=== PATIENT | male | born 1945 | race Caucasian/White ===

== ENCOUNTER 2017-05-27 06:48 | Emergency (ER) | payer SELFPAY ==
[2017-05-27 07:24] VITALS: TEMP 98.7; BMI 28.3
--- NOTE | 2017-05-27 07:24 | PDOC ---
History of Present Illness - General Chief Complaint: Urinary Problem Stated Complaint: CANNOT URINATE Time Seen by Provider: 05/27/17 07:09 History Source: Patient, Family (niece) Exam Limitations: Language Barrier (speaks azeri) - History of Present Illness Initial Comments: 05/27/17 07:25 72yo male presents ambulatory to the ED for eval of urinary retention. Hx of CVA , HTN, and an enlarged prostate for which he underwent prostate sx 6 years ago in [place]. Pt arrives with his niece, who is at the bedside and assisting with translation. [place] in the [place] yesterday from [place]. Last time he was able to urinate was around 2p yesterday while on the plane. States he has only dribbled urine since. No dysuria. No f/c. No n/v/d. No hematuria. No cp/sob. No lightheaded or dizziness. c/o suprapubic abd pain. No other complaints. Past History - Travel Traveled outside of the country in the last 30 days: Yes If so, where?: from [place] - Past Medical History Allergies/Adverse Reactions: Allergies Allergy/AdvReac Type Severity Reaction Status Date / Time No Known Allergies Allergy Verified 05/27/17 07:03 Home Medications: Ambulatory Orders Tamsulosin HCl [Flomax] 0.4 mg PO DAILY #14 capsule 05/27/17 CVA: Yes HTN: Yes Comment:: 05/27/17 07:37 enlarged prostate - Surgical History Comments:: 05/27/17 07:37 prostate surgery - Psycho/Social/Smoking Cessation Hx Suicidal Ideation: No Smoking History: Never smoked Have you smoked in the past 12 months: No Information on smoking cessation initiated: No Hx Alcohol Use: No Drug/Substance Use Hx: No Review of Systems - Review of Systems Is the patient limited Turkish proficient: Yes Constitutional: No: Chills, Fever, Weakness HEENTM: No: Blurred Vision, Recent change in vision Respiratory: No: Cough, Shortness of Breath, SOB with Exertion Cardiac (ROS): No: Chest Pain, Lightheadedness, Palpitations ABD/GI: Yes: Blood Streaked Bowels (chronic blood in stool from plavix). No: Diarrhea, Nausea, Vomiting : Yes: Other (retention). No: Burning, Dysuria, Flank Pain, Hematuria, Urgency Musculoskeletal: No: Back Pain Integumentary: No: Bruising Neurological: No: Headache, Numbness All Other Systems: Reviewed and Negative *Physical Exam - Vital Signs Last Vital Signs Temp Pulse Resp BP Pulse Ox 98.7 F 87 20 133/91 99 05/27/17 07:03 05/27/17 07:03 05/27/17 07:03 05/27/17 07:03 05/27/17 07:03 - Physical Exam General Appearance: Yes: Nourished, Appropriately Dressed, Mild Distress HEENT: positive: EOMI Neck: positive: Supple Respiratory/Chest: positive: Lungs Clear, Normal Breath Sounds. negative: Respiratory Distress Cardiovascular: positive: Regular Rhythm, Regular Rate, S1, S2. negative: Edema Vascular Pulses: Dorsalis-Pedis (R): 2+, Doralis-Pedis (L): 2+ Gastrointestinal/Abdominal: positive: Normal Bowel Sounds, Tender (distended bladder, ttp suprapubic), Soft Male Genitalia: positive: normal genitalia, hernia (right inguinal easily reducible hernia). negative: testicular tenderness, testicular mass, epididymus tender, hematuria Rectal Exam: positive: heme negative stool, normal rectal tone, hemorrhoids (3 external hemorrhoids - no active bleeding, no thrombosed hemorrhoids). negative : heme positive stool Musculoskeletal: positive: Normal Inspection. negative: CVA Tenderness Extremity: positive: Normal Capillary Refill. 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 pain resolved. abd soft on re-eval. no ttp in abd. no hematuria. pending labs 05/27/17 08:37 pt feeling better. no complaints. Antonio in place. Rx for flomax sent to [facility]. discussed need for follow up with urology and the clinic. Family and pt verbalize understanding. Pt stable for d/c to home. Discussed all reasons to return to the ED. Pt will be in the [facility] until Jul 07. *DC/Admit/Observation/Transfer Diagnosis at time of Disposition: Urinary retention - Discharge Dispostion Disposition: HOME Condition at time of disposition: Stable Admit: No - Prescriptions Prescriptions: Tamsulosin HCl [Flomax] 0.4 mg PO DAILY #14 capsule - Referrals Referrals: Gabe Vickers MD [Staff Physician] - - Patient Instructions Printed Discharge Instructions: DI for Urinary Retention in Men Additional Instructions: Please take all meds as prescribed. Please follow up with urology for catheter eval and removal. Please continue to use the leg bag. Please return to the ED with any further concerns. [facility] follow up with the [facility].
[2017-05-27 07:43] LABS: BASOPHIL 0.3 % (0-2.0); EOSINOPHIL 0.1 % (0-4.5); MCH 29.5 pg (25.7-33.7); MCHC 33.2 g/dl (32.0-35.9); MEAN PLT VOLUME 7.5 fl (7.5-11.1); NEUTROPHILS 78.4 % (42.8-82.8); PLATELET COUNT 260 K/MM3 (134-434); RDW 13.2 % (11.9-15.9); WHITE BLOOD COUNT 8.3 K/mm3 (4.0-10.0)
[2017-05-27 07:45] LABS: URINE APPEARANCE CLEAR; URINE BILIRUBIN NEGATIVE (NEGATIVE); URINE BLOOD 1+ (NEGATIVE); URINE COLOR LTYELLOW; URINE GLUCOSE (UA) 1+ (NEGATIVE); URINE KETONE NEGATIVE (NEGATIVE); URINE LEUK ESTERASE NEGATIVE (NEGATIVE); URINE NITRITE NEGATIVE (NEGATIVE); URINE PROTEIN NEGATIVE (NEGATIVE); URINE UROBILINOGEN NEGATIVE mg/dL (0.2-1.0)
[2017-05-27 08:02] LABS: URINE MUCUS RARE; URINE RBC 5 /hpf (0-3)
[2017-05-27 08:17] LABS: ALBUMIN 3.4 g/dl (3.4-5.0); ALK PHOS 81 U/L (45-117); ANION GAP 9 (8-16); BILIRUBIN,TOTAL 0.6 mg/dL (0.2-1.0); CALCIUM 9.2 mg/dL (8.5-10.1); CO2 27 mmol/L (21-32); CREATININE 0.9 mg/dL (0.7-1.3); GLUCOSE,RANDOM 111 mg/dL (74-106); SGOT/AST 13 U/L (15-37); SGPT/ALT 20 U/L (12-78); TOT PROT 6.3 g/dl (6.4-8.2)
[2017-05-27] MEDS ORDERED: TAMSULOSIN HCL 0.4 MG CAP.ER.24H (FP) PO ONE (08:24)
[2017-05-27] MEDS ORDERED: TAMSULOSIN HCL 0.4 MG CAP.ER.24H (FP) ONE (08:31)
[2017-05-27 09:06] VITALS: BP 130/87; PULSE 85
== END 2017-05-27 09:06 | disposition home or self-care (01) ==
LOC: JER 06:48
PROC: 0T9B70Z Drainage of Bladder with Drainage Device, Via Natural or Artificial Opening (ICD-10-PCS; principal; 2017-05-27)
DX: R33.8 Other retention of urine (principal); N40.0 Benign prostatic hyperplasia without lower urinary tract symptoms; I10 Essential (primary) hypertension; Z86.73 Personal history of transient ischemic attack (TIA), and cerebral infarction without residual deficits
CPT/HCPCS: 36415; 80053; 81003; 81015; 85025; 87086; 99283-25

== ENCOUNTER 2017-06-02 03:26 | Emergency (ER) | payer SELFPAY ==
--- NOTE | 2017-06-02 04:13 | PDOC ---
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 Patient recently traveled to [facility] from [place] to visit family May 26. On May 27 patient was seen in this ED for urinary retention. Patient was given f/u referral to Urology , which he refuses to see an MD in this country. Patient daughter states he would like to see his doctors back home. He reports symptoms began this morning , with intermittent mild abdominal discomfort. Patient denies n/v/d, fever, difficulty breathing, CP, back pain or any other complaints at this time. Timing/Duration: reports: intermittent Quality: reports: mild Abdominal Pain Onset Location: reports: other (Lower abdominal pain) Pain Radiation: reports: no radiation Past History - Travel Traveled outside of the country in the last 30 days: No Close contact w/someone who was outside of country & ill: No - Past Medical History Allergies/Adverse Reactions: Allergies Allergy/AdvReac Type Severity Reaction Status Date / Time No Known Allergies Allergy Verified 05/27/17 07:03 Home Medications: Ambulatory Orders Tamsulosin HCl [Flomax] 0.4 mg PO DAILY #14 capsule 05/27/17 Cephalexin [Keflex] 500 mg PO BID #20 capsule 06/02/17 CVA: Yes Disorders: Yes (BPH) HTN: Yes - Psycho/Social/Smoking Cessation Hx Anxiety: No Suicidal Ideation: No Smoking History: Never smoked Have you smoked in the past 12 months: No Hx Alcohol Use: No Drug/Substance Use Hx: No Substance Use Type: None Abd/GI Specific PMHX - Complaint Specific PMHX Colitis: No Diverticulitis: No Gall Bladder Disease: No GERD: No Hepatitis: No Irritable Bowel Synd (IBS): No Pancreatitis: No GI Ulcer Disease: No Review of Systems - Review of Systems Able to Perform ROS?: Yes Is the patient limited Estonian proficient: No Constitutional: No: Chills, Fever Respiratory: No: Cough, Orthopnea, Shortness of Breath, Stridor, Wheezing Cardiac (ROS): No: Chest Pain, Chest Tightness ABD/GI: Yes: Abdominal cramping. No: Abdominal Distended, Abd. Pain w/ defecation, Blood Streaked Bowels, Constipated, Diarrhea, Difficulty Swallowing , Nausea, Poor Appetite, Poor Fluid Intake, Rectal Bleeding, Vomiting, Tarry Stools : Yes: Hematuria, Other (Antonio Cath due to retention). No: Burning, Dysuria, Discharge, Frequency, Flank Pain, Pain, Urgency Musculoskeletal: No: Back Pain Integumentary: No: Bruising, Erythema, Pruritus, Rash, Sweating All Other Systems: Reviewed and Negative *Physical Exam - Physical Exam General Appearance: Yes: Nourished, Appropriately Dressed. No: Apparent Distress, Mild Distress, Moderate Distress, Severe Distress Respiratory/Chest: positive: Lungs Clear, Normal Breath Sounds. negative: Chest Tender, Respiratory Distress, Accessory Muscle Use, Labored Respiration, Rapid RR, Paradoxal Breathing, Crackles, Rhonchi, Stridor, Wheezing Cardiovascular: positive: Regular Rhythm, Regular Rate. negative: Bradycardia, Tachycardia Gastrointestinal/Abdominal: positive: Normal Bowel Sounds, Flat, Soft. negative : Distended, Guarding, Rebound, Tenderness Male Genitalia: positive: normal genitalia, inguinal hernia, hematuria. negative: testicular tenderness, testicular mass Musculoskeletal: positive: Normal Inspection. negative: CVA Tenderness Extremity: positive: Normal Capillary Refill, Normal Inspection, Normal Range of Motion. 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 No nela hematuria noted. UA + UTI. Will treat with po Abx. *DC/Admit/Observation/Transfer Diagnosis at time of Disposition: Urinary tract infection Qualifiers: Urinary tract infection type: acute cystitis Hematuria presence: without hematuria Qualified Code(s): N30.00 - Acute cystitis without hematuria - Discharge Dispostion Disposition: HOME Condition at time of disposition: Stable Admit: No - Prescriptions Prescriptions: Cephalexin [Keflex] 500 mg PO BID #20 capsule - Referrals Referrals: Bala Barron MD [Staff Physician] - - Patient Instructions Printed Discharge Instructions: DI for Hematuria, DI for Urinary Tract Infection (UTI) Additional Instructions: Follow up with Dr. Barron (Urology). Call to schedule appointment regarding urinary retention. Take medications as prescribed. Increase fluid intake (water) . Return if any concerns for further evaluation. Print Language: FRENCH
[2017-06-02 04:19] LABS: BASOPHIL 1.1 % (0-2.0); EOSINOPHIL 1.2 % (0-4.5); MCH 30.2 pg (25.7-33.7); MCHC 33.8 g/dl (32.0-35.9); MEAN CELL VOLUME 89.4 fl (80-96); MEAN PLT VOLUME 7.7 fl (7.5-11.1); NEUTROPHILS 68.9 % (42.8-82.8); PLATELET COUNT 243 K/MM3 (134-434); RDW 13.3 % (11.9-15.9); WHITE BLOOD COUNT 6.4 K/mm3 (4.0-10.0)
[2017-06-02 04:23] VITALS: BP 121/80; PULSE 68; TEMP 98.1; BMI 19.5
[2017-06-02 04:25] LABS: URINE APPEARANCE SLCLOUDY; URINE BILIRUBIN NEGATIVE (NEGATIVE); URINE BLOOD 3+ (NEGATIVE); URINE COLOR STRAW; URINE GLUCOSE (UA) NEGATIVE (NEGATIVE); URINE KETONE NEGATIVE (NEGATIVE); URINE NITRITE POSITIVE (NEGATIVE); URINE UROBILINOGEN NEGATIVE mg/dL (0.2-1.0)
[2017-06-02 04:28] LABS: URINE LEUK ESTERASE 3+ (NEGATIVE); URINE PROTEIN 1+ (NEGATIVE)
[2017-06-02 04:29] LABS: URINE BACTERIA RARE /hpf (NONE SEEN); URINE RBC 41 /hpf (0-3); URINE WBC 61 /hpf (3-5)
[2017-06-02 04:41] LABS: ALBUMIN 3.2 g/dl (3.4-5.0); ANION GAP 9 (8-16); BILIRUBIN,TOTAL 0.2 mg/dL (0.2-1.0); CO2 27 mmol/L (21-32); CREATININE 0.9 mg/dL (0.7-1.3); GLUCOSE,RANDOM 103 mg/dL (74-106); SGOT/AST 11 U/L (15-37); SGPT/ALT 19 U/L (12-78); TOT PROT 6.2 g/dl (6.4-8.2)
[2017-06-02 04:42] LABS: ALK PHOS 76 U/L (45-117)
[2017-06-02 04:44] LABS: INR 1.03 (0.82-1.09); PROTHROMBIN TIME (PATIENT) 11.3 SEC (9.98-11.88)
[2017-06-02] MEDS ORDERED: CEPHALEXIN MONOHYDRATE 500 MG CAPSULE (UD) PO ONE (05:00)
[2017-06-02] MEDS ORDERED: CEPHALEXIN MONOHYDRATE 250 MG CAPSULE (FP) ONE (05:03)
== END 2017-06-02 05:10 | disposition home or self-care (01) ==
LOC: JER 03:26
DX: N30.01 Acute cystitis with hematuria (principal); N40.0 Benign prostatic hyperplasia without lower urinary tract symptoms; I10 Essential (primary) hypertension
CPT/HCPCS: 36415; 80053; 81003; 81015; 85025; 85610; 85730; 87086; 87186; 99281-25

== ENCOUNTER 2017-06-15 20:17 | Inpatient (IN) | payer OTHER ==
--- NOTE | 2017-06-15 22:29 | PDOC ---
History of Present Illness - General History Source: Patient, Family Exam Limitations: No Limitations - History of Present Illness Initial Comments: 06/15/17 23:23 The patient is a 72 year old male, accompanied by his niece, with a significant past medical history of CVA, hypertension, and an enlarged prostate for which he underwent prostate surgery six years ago in [place], who presents to the emergency department with hematuria and bilateral lower quadrant abdominal pain s/p catheter insertion. The patients niece is present and assisting with translation. The patient recently traveled to the [place] from [place] on [place] 26 and visited the ER on May 27 for urinary retention s/p flight from [place]. The patient received a catheter and reports experiencing bilateral lower abdominal pain, hematuria and subjective fever. The patient's niece reports the patient is currently taking Levofloxacin antibiotics with the last dose administered at approx. five pm earlier today. Allergies: NKA Recent Travel from [place]. <Jama Ruiz - Last Filed: 06/15/17 23:23> <Shahnaz Garcia - Last Filed: 06/16/17 03:11> - General Chief Complaint: Urinary Problem Stated Complaint: URINARY CATHATER PROBLEM Time Seen by Provider: 06/15/17 22:29 Past History <Jama Ruiz - Last Filed: 06/15/17 23:23> - Past Medical History CVA: Yes Disorders: Yes (BPH) HTN: Yes - Suicide/Smoking/Psychosocial Hx Smoking History: Never smoked Have you smoked in the past 12 months: No Hx Alcohol Use: No Drug/Substance Use Hx: No Substance Use Type: None <Shahnaz Garcia - Last Filed: 06/16/17 03:11> - Past Medical History Allergies/Adverse Reactions: Allergies Allergy/AdvReac Type Severity Reaction Status Date / Time No Known Allergies Allergy Verified 06/15/17 20:37 Home Medications: Ambulatory Orders Tamsulosin HCl [Flomax] 0.4 mg PO DAILY #14 capsule 05/27/17 Cephalexin [Keflex] 500 mg PO BID #20 capsule 06/02/17 Review of Systems - Review of Systems Comments:: 06/15/17 23:31 GENERAL/CONSTITUTIONAL: +Subjective fever. No chills. HEAD, EYES, EARS, NOSE AND THROAT: No change in vision. No ear pain or discharge. No sore throat. CARDIOVASCULAR: No chest pain or shortness of breath. RESPIRATORY: No cough, wheezing, or hemoptysis. GASTROINTESTINAL: +Right lower quadrant abdominal pain. +Left lower quadrant abdominal pain. No nausea, vomiting, diarrhea or constipation. GENITOURINARY: +Hematuria. MUSCULOSKELETAL: No joint or muscle swelling or pain. No neck or back pain. SKIN: No rash NEUROLOGIC: No headache, vertigo, loss of consciousness, or change in strength/ sensation. ENDOCRINE: No increased thirst. No abnormal weight change. HEMATOLOGIC/LYMPHATIC: No anemia, easy bleeding, or history of blood clots. ALLERGIC/IMMUNOLOGIC: No hives or skin allergy. Is the patient limited Hebrew proficient: Yes <Jama Ruiz - Last Filed: 06/15/17 23:23> *Physical Exam - Vital Signs Last Vital Signs Temp Pulse Resp BP Pulse Ox 99.1 F 80 18 124/71 99 06/15/17 20:35 06/15/17 20:35 06/15/17 20:35 06/15/17 20:35 06/15/17 20:35 - Physical Exam Comments: 06/15/17 23:33 GENERAL: Awake, alert, and fully oriented, in no acute distress HEAD: No signs of trauma EYES: PERRLA, EOMI, sclera anicteric, conjunctiva clear ENT: Auricles normal inspection, hearing grossly normal, nares patent, oropharynx clear without exudates. Moist mucosa NECK: Normal ROM, supple, no lymphadenopathy, JVD, or masses LUNGS: Breath sounds equal, clear to auscultation bilaterally. No wheezes, and no crackles HEART: Regular rate and rhythm, normal S1 and S2, no murmurs, rubs or gallops ABDOMEN: +Right lower quadrant tenderness. +Left lower quadrant tenderness. Soft , normoactive bowel sounds. No guarding, no rebound. No masses EXTREMITIES: Normal range of motion, no edema. No clubbing or cyanosis. No cords, erythema, or tenderness NEUROLOGICAL: Cranial nerves II through XII grossly intact. Normal speech, normal gait SKIN: Warm, Dry, normal turgor, no rashes or lesions noted. <Jama Ruiz - Last Filed: 06/15/17 23:23> - Vital Signs Last Vital Signs Temp Pulse Resp BP Pulse Ox 99.1 F 80 18 124/71 99 06/15/17 20:35 06/15/17 20:35 06/15/17 20:35 06/15/17 20:35 06/15/17 20:35 <Shahnaz Garcia - Last Filed: 06/16/17 03:11> ED Treatment Course - LABORATORY CBC & Chemistry Diagram: 06/15/17 23:20 06/15/17 23:20 <Shahnaz Garcia - Last Filed: 06/16/17 03:11> Medical Decision Making - Medical Decision Making 06/15/17 23:54 Pt comes with lower abd/ cystitis pain that results in pain with ambulation. This is his 3rd visit to the ER. Last time he was sent home with keflex, but pt 's UA is more infected than it was 3 weeks ago. Pt feels febrile. He has a leaking urinary catheter. Nerissamassimo states that pt came from [place] to [facility] to visit relatives, here he has been suffering with UTI/prostatitis/BPH and cystitis/worsening prostatitis and indwelling antonio catheter now Pt has pain in his antonio cath and slight bleeding. He remains with a nitrite positive urine and though his urologist treated him with levaquin today, (pt had only first dose today after 5PM) he will require sono of the pelvis to r/o displacement of antonio catheter or cystitis. 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 06/16/17 01:28 Patient Name: MARYAN MOSQUEDA THIS IS A PRELIMINARY REPORT FROM [facility] IMAGES: 31 EXAM DATE AND TIME: 2017-06-16 00:07:05 EXAM: ULTRASOUND BLADDER Thickened bladder wall, possibly due to cystitis or hypertrophy. Small right posterior bladder diverticulum. Bladder volume 295 cc. Antonio catheter within bladder. Enlarged prostate, 93 cc volume. THIS DOCUMENT HAS BEEN ELECTRONICALLY SIGNED 06/16/17 03:07 Pt will be admitted to observation to the hospitalist; Pt's urologist Wilfredo Machuca should be consulted. <Shahnaz Garcia - Last Filed: 06/16/17 03:11> *DC/Admit/Observation/Transfer - Attestations Scribe Attestion: 06/15/17 23:34 Documentation prepared by Jama Ruiz, acting as medical cost consultant for Shahnaz Garcia MD. <Jama Ruiz - Last Filed: 06/15/17 23:23> - Discharge Dispostion Admit: Yes <Shahnaz Garcia - Last Filed: 06/16/17 03:11> Diagnosis at time of Disposition: Cystitis, Prostatitis - Discharge Dispostion Condition at time of disposition: Guarded - Patient Instructions
[2017-06-15] MEDS ORDERED: SODIUM CHLORIDE 0.9% 500 ML INFUS.BAG IV ONE (22:44)
[2017-06-15] MEDS ORDERED: KETOROLAC TROMETHAMINE 30 MG/1 ML VIAL IVPUSH ONE (22:44)
[2017-06-15] MEDS ORDERED: KETOROLAC TROMETHAMINE 30 MG/1 ML VIAL ONE (23:02)
[2017-06-15 23:39] LABS: URINE APPEARANCE CLEAR; URINE BILIRUBIN NEGATIVE (NEGATIVE); URINE BLOOD 3+ (NEGATIVE); URINE COLOR LT. YELLOW; URINE GLUCOSE (UA) 1+ (NEGATIVE); URINE KETONE NEGATIVE (NEGATIVE); URINE UROBILINOGEN 0.2 mg/dL (0.2-1.0)
[2017-06-15 23:42] LABS: URINE LEUK ESTERASE 2+ (NEGATIVE); URINE NITRITE POSITIVE (NEGATIVE); URINE PROTEIN 2+ (NEGATIVE)
[2017-06-15 23:50] LABS: BASOPHIL 0.3 % (0-2.0); CALCIUM OXALATE CRYSTALS RARE /hpf (NONE SEEN); EOSINOPHIL 0.5 % (0-4.5); MCH 30.2 pg (25.7-33.7); MCHC 34.1 g/dl (32.0-35.9); MEAN CELL VOLUME 88.4 fl (80-96); MEAN PLT VOLUME 7.9 fl (7.5-11.1); NEUTROPHILS 78.6 % (42.8-82.8); PLATELET COUNT 246 K/MM3 (134-434); RDW 13.1 % (11.9-15.9); URINE BACTERIA RARE /hpf (NONE SEEN); URINE RBC 22 /hpf (0-3); URINE WBC 192 /hpf (3-5); WHITE BLOOD COUNT 10.8 K/mm3 (4.0-10.0)
[2017-06-16] MEDS ORDERED: PHENAZOPYRIDINE HCL 100 MG TABLET (FP) PO ONE (00:09)
[2017-06-16 00:15] LABS: ALBUMIN 3.1 g/dl (3.4-5.0); ANION GAP 7 (8-16); CALCIUM 8.9 mg/dL (8.5-10.1); CO2 30 mmol/L (21-32); CREATININE 0.8 mg/dL (0.7-1.3); GLUCOSE,RANDOM 98 mg/dL (74-106); SGOT/AST 13 U/L (15-37); SGPT/ALT 21 U/L (12-78)
[2017-06-16 00:17] LABS: ALK PHOS 80 U/L (45-117); BILIRUBIN,TOTAL 0.9 mg/dL (0.2-1.0)
[2017-06-16] MEDS ORDERED: PHENAZOPYRIDINE HCL 100 MG TABLET (FP) ONE ×2 (00:19→00:24)
--- NOTE | 2017-06-16 01:57 | HP ---
CHIEF COMPLAINT: Blood in urine, abdominal pain , urinary infection. PCP: In [place] , Urologist : Dr.Sherif Sifuentes HISTORY OF PRESENT ILLNESS: The patient is a 72 year old male, accompanied by his niece, with a significant past medical history of CVA, hypertension, and an enlarged prostate for which he underwent prostate surgery in 2007 , who presents to the emergency department with hematuria and bilateral lower quadrant abdominal pain s/p catheter insertion. The patients niece is present and assisting with translation. The patient recently traveled [place] the [place] from [place] on [place] 26 and visited the ER on May 27 for urinary retention s/p flight from [place]. The patient received a catheter and reports experiencing bilateral lower abdominal pain, hematuria and subjective fever. The patient's niece reports the patient is currently taking Levofloxacin antibiotics with the last dose administered at approximately 5 pm earlier today. ER course was notable for: (1) UA: +3 Blood, +2 Protein, +1 Glucose (2)IV fluids: 1L bolus given in ED (3)urine culture , blood culture pending Recent Travel: [place] PAST MEDICAL HISTORY: CVA, prostate enlargement. PAST SURGICAL HISTORY:Prostate procedure 2007 Social History: Smoking: never Alcohol:socially Drugs: never Family History:non contributory Allergies No Known Allergies Allergy (Verified 06/15/17 20:37) HOME MEDICATIONS: Home Medications Medication Instructions Recorded Tamsulosin HCl [Flomax] 0.4 mg PO DAILY #14 capsule 05/27/17 Cephalexin [Keflex] 500 mg PO BID #20 capsule 06/02/17 REVIEW OF SYSTEMS CONSTITUTIONAL: Absent: fever, chills, diaphoresis, generalized weakness, malaise, loss of appetite, weight change HEENT: Absent: rhinorrhea, nasal congestion, throat pain, throat swelling, difficulty swallowing, mouth swelling, ear pain, eye pain, visual changes CARDIOVASCULAR: Absent: chest pain, syncope, palpitations, irregular heart rate, lightheadedness , peripheral edema RESPIRATORY: Absent: cough, shortness of breath, dyspnea with exertion, orthopnea, wheezing, stridor, hemoptysis GASTROINTESTINAL: Absent: lower , suprapubic abdominal pain, abdominal distension, nausea, vomiting, diarrhea, constipation, melena, hematochezia GENITOURINARY: Absent: dysuria, frequency, urgency, hesitancy, hematuria, flank pain, genital pain MUSCULOSKELETAL: Absent: myalgia, arthralgia, joint swelling, back pain, neck pain SKIN: Absent: rash, itching, pallor HEMATOLOGIC/IMMUNOLOGIC: Absent: easy bleeding, easy bruising, lymphadenopathy, frequent infections ENDOCRINE: Absent: unexplained weight gain, unexplained weight loss, heat intolerance, cold intolerance NEUROLOGIC: Absent: headache, focal weakness or paresthesias, dizziness, unsteady gait, seizure, mental status changes, urinary retension, or bowel incontinence PSYCHIATRIC: Absent: anxiety, depression, suicidal or homicidal ideation, hallucinations. PHYSICAL EXAMINATION Vital Signs - 24 hr 06/15/17 20:35 Temperature 99.1 F Pulse Rate 80 Respiratory 18 Rate Blood Pressure 124/71 O2 Sat by Pulse 99 Oximetry (%) GENERAL: Awake, alert, and fully oriented, in no acute distress. HEAD: Normal with no signs of trauma. EYES: Pupils equal, round and reactive to light, sclera anicteric, conjunctiva clear. EARS, NOSE, THROAT: Moist mucous membranes. LUNGS: Breath sounds equal, clear to auscultation bilaterally. No wheezes, and no crackles. No accessory muscle use. HEART: Regular rate and rhythm, normal S1 and S2 without murmur, rub or gallop. ABDOMEN: Soft, nontender, not distended, normoactive bowel sounds, no guarding, no rebound, left abdominal hernia, Right inguinal hernia ,urinary cath in place MUSCULOSKELETAL: Normal range of motion at all joints. No bony deformities or tenderness. CVA tenderness. LOWER EXTREMITIES:warm, well-perfused. No calf tenderness. No peripheral edema. NEUROLOGICAL: good mentation SKIN: Warm, dry, no rashes or lesions noted, Laboratory Results - last 24 hr 06/15/17 06/15/17 06/15/17 23:20 23:20 23:20 WBC 10.8 H D RBC 4.28 Hgb 12.9 Hct 37.8 MCV 88.4 MCH 30.2 MCHC 34.1 RDW 13.1 Plt Count 246 MPV 7.9 Neutrophils % 78.6 Lymphocytes % 10.6 D Monocytes % 10.0 Eosinophils % 0.5 Basophils % 0.3 Sodium 136 Potassium 4.1 Chloride 99 Carbon Dioxide 30 Anion Gap 7 L BUN 19 H D Creatinine 0.8 Creat Clearance w eGFR > 60 Random Glucose 98 Calcium 8.9 Total Bilirubin 0.9 D AST 13 L ALT 21 Alkaline Phosphatase 80 Total Protein 6.0 L Albumin 3.1 L Urine Color Lt. yellow Urine Appearance Clear Urine pH 6.0 Urine Protein 2+ H Urine Glucose (UA) 1+ H Urine Ketones Negative Urine Blood 3+ H Urine Nitrite Positive Urine Bilirubin Negative Urine Urobilinogen 0.2 Urine RBC 22 Urine WBC 192 Ur Epithelial Cells Rare Calcium Oxalate Crystal Rare Urine Bacteria Rare 2017-06-16 00:07:05 EXAM: ULTRASOUND BLADDER Thickened bladder wall, possibly due to cystitis or hypertrophy. Small right posterior bladder diverticulum. Bladder volume 295 cc. Antonio catheter within bladder. Enlarged prostate, 93 cc volume. UCx 9/ Negative UCx 06/02 Klebsiella Pneumonia ASSESSMENT/PLAN: is a 72 year old male from [place],with past medical history of CVA , enlarged prostate, who presented to the ED with 2 weeks history of Urinary retention, hematuria and lower bilateral quadrant abdominal pain , S/P antonio catheter, was admitted for observation. # Hematuria, likey 2/2 cystitis vs Prostitis * UA * Not on any anticoagulation * Monitor * F/U CBC, BMP , UA #Complicated UTI / Cystitis 2/2 urinary retention * supra pubic tenderness * 2 weeks hematuria * Afebrile, does not meet SIRS criteria * blood culture, urine culture pending * UA showed: +3 blood, +2 Protein, +1 Glu * Dc levaquin * Start ceftriaxone 2 g IVPUS * Urologist consult * ID consult * Consider replace antonio after urology consult * # Right inguinal hernia with Left abdominal hernia * consider surgery consultation * asymptomatic * # HTN, controlled ? * verify and continue home meds # FEN * F: 1L NS Bolus given in ED, will give 500 CC bolus * E: WNL, monitor * N: regular diet # proph * DVT: Moderate risk, SCDs both legs, Lovenox 40 sq daily * GI: No need # Dispo * Admit to observation Visit type - Emergency Visit Emergency Visit: Yes ED Registration Date: 06/16/17 Care time: The patient presented to the Emergency Department on the above date and was hospitalized for further evaluation of their emergent condition. - New Patient This patient is new to me today: Yes Date on this admission: 06/16/17 - Critical Care Critical Care patient: No
--- NOTE | 2017-06-16 02:41 | PN ---
Teaching Attending Note Name of Resident: Keanu Elise ATTENDING PHYSICIAN STATEMENT I saw and evaluated the patient. I reviewed the resident's note and discussed the case with the resident. I agree with the resident's findings and plan as documented. OBJECTIVE: Last Vital Signs Temp Pulse Resp BP Pulse Ox 99.1 F 80 18 124/71 99 06/15/17 20:35 06/15/17 20:35 06/15/17 20:35 06/15/17 20:35 06/15/17 20:35 Laboratory Tests 06/02/17 06/15/17 04:10 23:20 Urine Blood 3+ H 3+ H Urine Nitrite Positive Positive Ur Leukocyte Esterase 3+ H Urine RBC 41 22 Urine WBC 61 192 THIS IS A PRELIMINARY REPORT FROM IMAGING DEPUTY ATTORNEY GENERAL IMAGES: 31 EXAM DATE AND TIME: 2017-06-16 00:07:05 EXAM: ULTRASOUND BLADDER Thickened bladder wall, possibly due to cystitis or hypertrophy. Small right posterior bladder diverticulum. Bladder volume 295 cc. Briggs catheter within bladder. Enlarged prostate, 93 cc volume. THIS DOCUMENT HAS BEEN ELECTRONICALLY SIGNED Josiane Barney M.D. UCx 05/27 Negative UCx 06/02 Klebsiella (see below) ASSESSMENT AND PLAN: The patient is a 72 year old male with a significant past medical history of CVA , hypertension, BPH (s/p TURP), s/p Briggs catheter insertion in our ED (May 27 ) due to urinary retention, Briggs discontinuation and reinsertion 06/02, Klebsiella UTI (UCs 06/02, Resistant to Ampicillin, Intermediate to Nitrofurantion , otherwise sensitive) on outpatient Levaquin prescribed by his urologist, who presented to the ED complaining of subjective fever, lower abdominal discomfort , and Briggs leakage and is being placed on observation for further evaluation and treatment of UTI. #Complicated UTI / Cystitis Subjective fever is suggestive of pyelonephritis though he does not have objective evidence of it He is not febrile in the ED and has no SIRS of qSOFA criteria No evidence of sepsis Discontinue Levaquin Begin Ceftriaxine UCx, BCx Urology Consult Would support Briggs change but will defer to urology See resident note for full details
[2017-06-16] MEDS ORDERED: HYDROmorphone HCL CARPU-JECT 1 MG/1 ML DISP.SYRIN IVPUSH PRN (03:01)
[2017-06-16] MEDS ORDERED: SODIUM CHLORIDE 500 ML IV STA (03:01)
[2017-06-16 07:10] VITALS: BMI 19.0
--- NOTE | 2017-06-16 08:22 | PN ---
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
[2017-06-16 08:52] LABS: MCH 29.9 pg (25.7-33.7); MCHC 33.8 g/dl (32.0-35.9); MEAN CELL VOLUME 88.5 fl (80-96); MEAN PLT VOLUME 7.6 fl (7.5-11.1); PLATELET COUNT 244 K/MM3 (134-434); RDW 13.3 % (11.9-15.9); WHITE BLOOD COUNT 9.4 K/mm3 (4.0-10.0)
--- NOTE | 2017-06-16 08:59 | CONS ---
DATE OF CONSULTATION: HISTORY: This is a 72-year-old Syrian male who I am asked to see for evaluation of hematuria and suprapubic tenderness. A history is obtained from reviewing the chart as the patient speaks only Portuguese. He came accompanied by his nurse who translated indicating that he has a history of BPH and had previously undergone prostate surgery in [place] in 2007. Earlier this month he had presented to the emergency room here for urinary retention and had a Briggs catheter inserted. A urine culture done revealed a sensitive Klebsiella pneumoniae, and the patient has been on levofloxacin at home. He comes now having recently travelled from [place] returning May 26 and has been experiencing bilateral lower abdominal discomfort with subjective fever and hematuria. Again, he has an indwelling Briggs catheter placed earlier this month. I am not sure if he has seen a urologist in the interim. He had low-grade temperature following admission, was given ceftriaxone, and had been taking oral antibiotics up to the time that he came to the emergency room. Currently, he is alert and in no acute distress. PAST MEDICAL HISTORY: Includes prostate surgery. CURRENT MEDICATIONS: None. SOCIAL HISTORY: Nonsmoker. No history of alcohol, substance abuse. Recent travel as noted. FAMILY HISTORY: Currently unobtainable. REVIEW OF SYSTEMS: Respiratory: No cough or shortness of breath. Cardiac: No chest pain, palpitations, murmur. Gastrointestinal: No diarrhea, vomiting, nausea. Genitourinary: As noted in history of present illness. PHYSICAL EXAMINATION: General: He is a thin male weighing 97 pounds in no acute distress. Vital Signs: Temperature is 99.6, pulse 80, blood pressure 124/71, respirations 18. Neck: Supple. Lungs: Clear to P and A. Heart: S1, S2. Regular rhythm. No audible murmur. Abdomen: Positive bowel sounds. Nondistended. Suprapubic lower quadrant tenderness. No guarding or rebound. Extremities: No clubbing, cyanosis, or edema. LABORATORY DATA: White count 10.8, hemoglobin 12.9, platelets 246, INR 1.03. BUN 19, creatinine 0.8. Urinalysis with 32 red cells, 192 WBCs, rare bacteria. Bladder ultrasound reading currently pending. ASSESSMENT: A 72-year-old male with a history of urinary retention status post placement of a Briggs catheter who presents with suprapubic pain, low-grade fever, and hematuria. He had previously had Klebsiella cultured from a urine culture on June 02. He does not appear toxic at this time and would recommend continuing ceftriaxone as ordered, obtaining blood and urine cultures, CRP, Urology consultation, and renal including bladder ultrasound. MICHELLE JUDGE M.D. [id number]
[2017-06-16] MEDS ORDERED: DEXTROSE 5%-WATER 100 ML IVPB ONE (09:08)
[2017-06-16 09:29] LABS: ANION GAP 4 (8-16); CALCIUM 8.9 mg/dL (8.5-10.1); CO2 30 mmol/L (21-32); CREATININE 0.7 mg/dL (0.7-1.3); GLUCOSE,RANDOM 85 mg/dL (74-106)
[2017-06-16] MEDS ORDERED: cefTRIAXone 2 GM/100 ML BAG (PRE-DOCKED) IVPB SCH (10:00)
[2017-06-16] MEDS: ENOXAPARIN NA (PORCINE) 40 MG/0.4 ML DISP.SYRIN SQ SCH (10:25)
[2017-06-16] MEDS: CEFTRIAXONE 2 GM in DEXTROSE 5%-WATER 100 ML IVPB SCH (10:25)
--- NOTE | 2017-06-16 12:00 | CON.GU ---
Consult Consult Specialty:: urology Reason for Consultation:: bph/acute urinary retention - History of Present Illness Chief Complaint: patient with uti s/p acute urinary retention History of Present Illness: patient has been followed for the last week for acute urinary retention and has been on po levaquin. Patient has failed multiple trials of voiding. The patient was titrated to flomax 0.8 mg daily and failed a trial of voiding. Patient with history of previous TURP. - History Source History Provided By: Patient Limitations to Obtaining History: No Limitations - Alcohol/Substance Use Hx Alcohol Use: No - Smoking History Smoking history: Never smoked Have you smoked in the past 12 months: No Home Medications - Allergies Allergies/Adverse Reactions: Allergies Allergy/AdvReac Type Severity Reaction Status Date / Time No Known Allergies Allergy Verified 06/16/17 04:00 - Home Medications Home Medications: Ambulatory Orders Tamsulosin HCl [Flomax] 0.4 mg PO DAILY #14 capsule 05/27/17 Cephalexin [Keflex] 500 mg PO BID #20 capsule 06/02/17 Physical Exam- Vital Signs: Vital Signs Temperature 99.6 F 06/16/17 06:44 Pulse Rate 80 06/16/17 06:44 Respiratory Rate 18 06/16/17 06:44 Blood Pressure 124/71 06/16/17 06:44 O2 Sat by Pulse Oximetry (%) 99 06/16/17 06:44 Constitutional: Yes: Well Nourished, No Distress, Calm Eyes: Yes: WNL, Conjunctiva Clear HENT: Yes: WNL, Atraumatic, Normocephalic Neck: Yes: WNL, Trachea Midline Cardiovascular: Yes: WNL, Regular Rate and Rhythm Respiratory: Yes: WNL, Regular Gastrointestinal: Yes: WNL, Normal Bowel Sounds Renal/: Yes: WNL Kidneys: Yes: WNL Pelvis: Yes: WNL Testicles: Yes: WNL Scrotum: Yes: WNL Penis: Yes: WNL Prostate Exam: Yes: Asymmetrical, Swollen Labs: CBC, BMP 06/16/17 08:35 06/16/17 08:35 Assessment/Plan imp uti acute urinary retention bph plan continue antibiotics will schedule for cystoscopy and possible turp on Sunday if medicall cleared
--- NOTE | 2017-06-16 14:58 | PN ---
Physical Exam: SUBJECTIVE: Patient seen and examined. OBJECTIVE: Vital Signs Period Temp Pulse Resp BP Sys/Cardenas Pulse Ox Last 24 Hr 97.8 F-99.6 F 74-80 18-18 124-133/71-75 99-99 GENERAL: The patient is awake, alert, and fully oriented, in no acute distress. LUNGS: Breath sounds equal, clear to auscultation bilaterally, no wheezes, no crackles, no accessory muscle use. HEART: Regular rate and rhythm, S1, S2 ABDOMEN: Area of RLQ fullness which is tender to palpation; right testicular swelling; antonio in place EXTREMITIES: 2+ pulses, warm, well-perfused, no edema. NEUROLOGICAL: Cranial nerves II through XII grossly intact. Normal speech, gait not observed. Laboratory Results - last 24 hr 06/16/17 06/16/17 06/16/17 08:35 08:35 08:35 WBC 9.4 RBC 4.33 Hgb 12.9 Hct 38.3 MCV 88.5 MCH 29.9 MCHC 33.8 RDW 13.3 Plt Count 244 MPV 7.6 Sodium 139 Potassium 4.4 Chloride 105 Carbon Dioxide 30 Anion Gap 4 L BUN 22 H Creatinine 0.7 Random Glucose 85 Calcium 8.9 C-Reactive Protein 12.0 H Cancelled Current Medications Generic Name Dose Route Start Last Admin Trade Name Freq PRN Reason Stop Dose Admin Enoxaparin Sodium 40 mg 06/16/17 10:00 06/16/17 10:25 Lovenox - SQ 06/17/17 10:30 40 mg DAILY DEISY Administration Ceftriaxone Sodium 2 gm/ 100 mls @ 200 mls/hr 06/16/17 10:00 06/16/17 10:25 Dextrose IVPB 200 mls/hr DAILY DEISY Administration ASSESSMENT/PLAN 72 year-old male with a PMH significant for HTN, h/o CVA, BPH (s/p TURP), s/p Antonio catheter insertion in our ED 05/27/17, due to urinary retention. Antonio discontinuation and reinsertion 06/02/17. Culture from 06/02 grew Klebsiella and was treated outpatient with levofloxacin. Admitted for lower abdominal discomfort, subjective fever, and antonio leakage. Complicated UTI / Cystitis --06/02 UC grew Klebsiella --treated outpatient with levofloxacin but has subjective fever and abdominal pain on this admission --06/15 cultures pending --start ceftriaxone --ID following Urinary retention BPH s/p TURP --has failed multiple trials of voiding, continue antonio --renal function stable, continue to monitor; strict I&Os --US renal pending --seen and evaluated by urology, cystoscopy and possible repeat TURP on Sunday; needs medical clearance: CXR, coags, cardiac consult r/o right inguinal hernia --RLQ fullness and tenderness with swollen right testicle --US scrotum and CTAP ordered --surgical consult Dr. Barakat DVT prophylaxis: continue subq lovenox, hold Sunday morning's dose Physical therapy evaluation Dispo: continues to require inpatient care. Full code. Visit type - Emergency Visit Emergency Visit: Yes ED Registration Date: 06/16/17 Care time: The patient presented to the Emergency Department on the above date and was hospitalized for further evaluation of their emergent condition. - New Patient This patient is new to me today: Yes Date on this admission: 06/16/17 - Critical Care Critical Care patient: No
[2017-06-17 07:29] LABS: BASOPHIL 0.7 % (0-2.0); EOSINOPHIL 1.3 % (0-4.5); MCH 29.5 pg (25.7-33.7); MCHC 33.6 g/dl (32.0-35.9); MEAN CELL VOLUME 87.7 fl (80-96); NEUTROPHILS 74.1 % (42.8-82.8); PLATELET COUNT 268 K/MM3 (134-434); RDW 13.2 % (11.9-15.9); WHITE BLOOD COUNT 7.6 K/mm3 (4.0-10.0)
[2017-06-17 07:36] LABS: INR 1.21 (0.82-1.09); PROTHROMBIN TIME (PATIENT) 13.4 SEC (9.98-11.88)
[2017-06-17 07:45] LABS: ALBUMIN 2.8 g/dl (3.4-5.0); ANION GAP 5 (8-16); BILIRUBIN,TOTAL 0.5 mg/dL (0.2-1.0); CALCIUM 8.7 mg/dL (8.5-10.1); CO2 30 mmol/L (21-32); CREATININE 0.7 mg/dL (0.7-1.3); GLUCOSE,RANDOM 95 mg/dL (74-106); PHOSPHOROUS 3.5 mg/dL (2.5-4.9); SGOT/AST 21 U/L (15-37); SGPT/ALT 22 U/L (12-78); TOT PROT 5.7 g/dl (6.4-8.2)
[2017-06-17 07:46] LABS: ALK PHOS 76 U/L (45-117)
[2017-06-17] MEDS ORDERED: DEXTROSE 5%-WATER 100 ML IVPB ONE (08:50)
[2017-06-17] MEDS: ENOXAPARIN NA (PORCINE) 40 MG/0.4 ML DISP.SYRIN SQ SCH (09:28)
[2017-06-17] MEDS: CEFTRIAXONE 2 GM in DEXTROSE 5%-WATER 100 ML IVPB SCH (09:28)
--- NOTE | 2017-06-17 11:42 | PN ---
Progress Note (short form) - Note Progress Note: Subjective: no pain, no fever or hcills, has no SOB or CP . denies any exertional chest pain , or palpotations , very independent in his ADLS. Objective: Vital Signs: Last Vital Signs Temp Pulse Resp BP Pulse Ox 98.2 F 73 18 109/66 99 06/17/17 10:00 06/17/17 10:00 06/17/17 10:00 06/17/17 10:00 06/16/17 20:00 Laboratory Results - last 24 hr 06/16/17 06/17/17 06/17/17 17:50 06:30 06:30 WBC 7.6 RBC 4.52 Hgb 13.3 Hct 39.6 MCV 87.7 MCH 29.5 MCHC 33.6 RDW 13.2 Plt Count 268 MPV 8.0 Neutrophils % 74.1 Lymphocytes % 14.0 D Monocytes % 9.9 Eosinophils % 1.3 D Basophils % 0.7 PT with INR 13.40 H INR 1.21 H PTT (Actin FS) 32.8 Sodium Potassium Chloride Carbon Dioxide Anion Gap BUN Creatinine Creat Clearance w eGFR Random Glucose Calcium Phosphorus Magnesium Total Bilirubin AST ALT Alkaline Phosphatase Total Protein Albumin 06/17/17 06:30 WBC RBC Hgb Hct MCV MCH MCHC RDW Plt Count MPV Neutrophils % Lymphocytes % Monocytes % Eosinophils % Basophils % PT with INR INR PTT (Actin FS) Sodium 139 Potassium 4.2 Chloride 104 Carbon Dioxide 30 Anion Gap 5 L BUN 16 D Creatinine 0.7 Creat Clearance w eGFR > 60 Random Glucose 95 Calcium 8.7 Phosphorus 3.5 Magnesium 2.0 Total Bilirubin 0.5 D AST 21 D ALT 22 Alkaline Phosphatase 76 Total Protein 5.7 L Albumin 2.8 L Physical Exam: NAD , AAOx3 , very pleasant and cooperative NO JVD , MMM. CV: RRR, no MRG, no JVD uungs: CTAB Abd:soft, NT, ND < NL BS . R groin with reversible inguinal hernia , with no tenderness. : NL hair distribution, Nl penis , and R parul-scrotum with enlargement due to the hernia .the R epididymis is tender to palpation . skin of scrotum is nL Rectal: NL hair distribution , skin tag. no masses . enlarged hard prostate but no Tenderness to palpation Imaging: US or kidneys and scrotum reviewed. Assessment/Plan: very pleasant 72 y/o man with h/o HTN, and CVA ,and recent diagnosis of UTI and urinary retention , who presented with lower abd pain , and was found to have UTI with epididymitis 1- UTI with epididymitis: US reviewed. and on exam minimal tenderness at the head of the epididymis on R side. he has no tenderness over the enlarged prostate on rectal exam. - cont CTX ( urine cx neg here but was on Abx, previous cx with Klebsiella ) - will check chalmydia and Gonorrhea given the epididymitis 2- Urinary retention : due to UTI and enlarged prostate. there is evidence of R hydro as a result of this. - Cont antonio. - For TURP and cystoscope tomorrow - Pre-Op risk stratification : The procedure itself is a low risk procedure, the patient himself has no evidence of CHF , ACS or arrhythmias. He walks 3 KM / day and has no Exertional SOB , or CP. Functional capasity is very good fo r his age ( > 4 METS ) overall, the patient is a low clinical risk for vish-op events for this low risk surgery. No need for any cardiac w/u prior to procedure 3- R inguinal hernia : Reducible. non tender . - Surgery eval. - monitor for now 4- h/o HTN: cont enalapril 5- H/O CVA : no residual weakness.Plavix on hold for procedure Meds were confirmed with family andn updated in system. Visit type - Emergency Visit Emergency Visit: Yes ED Registration Date: 06/16/17 Care time: The patient presented to the Emergency Department on the above date and was hospitalized for further evaluation of their emergent condition. - New Patient This patient is new to me today: Yes Date on this admission: 06/17/17 - Critical Care Critical Care patient: No
--- NOTE | 2017-06-17 11:45 | PN ---
Progress Note, Physician History of Present Illness: No complaints of pain Briggs catheter in place Afebrile Blood, urine c/s no growth - Current Medication List Current Medications: Active Medications Ceftriaxone Sodium 2 gm/ (Dextrose) 100 mls @ 200 mls/hr IVPB DAILY DEISY Last Admin: 06/17/17 09:28 Dose: 200 mls/hr - Objective Vital Signs: Vital Signs Temperature 98.2 F 06/17/17 10:00 Pulse Rate 73 06/17/17 10:00 Respiratory Rate 18 06/17/17 10:00 Blood Pressure 109/66 06/17/17 10:00 O2 Sat by Pulse Oximetry (%) 99 06/16/17 20:00 Constitutional: Yes: No Distress Cardiovascular: Yes: Regular Rate and Rhythm, S1, S2 Respiratory: Yes: CTA Bilaterally Genitourinary: Yes: Other (+ tenderness R scrotum + R inguinal hernia) Labs: CBC, BMP 06/17/17 06:30 06/17/17 06:30 INR, PTT INR 1.21 (0.82-1.09) H 06/17/17 06:30 Assessment/Plan UTI R epididymitis Acute urinary retention Continue empiric ceftriaxone Urine probe for GC/Chlamydia
--- NOTE | 2017-06-17 12:25 | CON.CARD ---
Consult Consult Specialty:: Cardiology Referred by:: Oscar Reason for Consultation:: preop evaluation - History of Present Illness Chief Complaint: urinary retention History of Present Illness: He is a 72 year old male history of CVA, hypertension, and an enlarged prostate s/p TURP 2007, who was admitted with urinary obstruction and is awaiting cystoscopy and possible TURP. He denies chest pain, sob, orthopnea, pnd or edema. Exercise tolerance is without limits. Walks 2 miles daily. - History Source History Provided By: Patient, Family Member, Medical Record - Alcohol/Substance Use Hx Alcohol Use: No - Smoking History Smoking history: Never smoked Have you smoked in the past 12 months: No Home Medications - Allergies Allergies/Adverse Reactions: Allergies Allergy/AdvReac Type Severity Reaction Status Date / Time No Known Allergies Allergy Verified 06/16/17 04:00 - Home Medications Home Medications: Ambulatory Orders Tamsulosin HCl [Flomax] 0.4 mg PO DAILY #14 capsule 05/27/17 Cephalexin [Keflex] 500 mg PO BID #20 capsule 06/02/17 Clopidogrel Bisulfate [Plavix -] 75 mg PO DAILY 06/17/17 Enalapril Maleate [Vasotec] 20 mg PO DAILY 06/17/17 Family Disease History - Family Disease History Family History: Unable to Obtain Review of Systems - Review of Systems Constitutional: reports: No Symptoms Eyes: reports: No Symptoms HENT: reports: No Symptoms Neck: reports: No Symptoms Cardiovascular: reports: No Symptoms Respiratory: reports: No Symptoms Vital Signs: Vital Signs Temperature 98.2 F 06/17/17 10:00 Pulse Rate 73 06/17/17 10:00 Respiratory Rate 18 06/17/17 10:00 Blood Pressure 109/66 06/17/17 10:00 O2 Sat by Pulse Oximetry (%) 99 06/16/17 20:00 Constitutional: Yes: No Distress, Thin Eyes: Yes: Conjunctiva Clear, EOM Intact HENT: Yes: Atraumatic, Normocephalic Neck: Yes: Supple, Trachea Midline Respiratory: Yes: CTA Bilaterally Gastrointestinal: Yes: Normal Bowel Sounds, Soft Cardiovascular: Yes: Regular Rate and Rhythm JVD: No Carotid Bruit: No PMI: Non-Displaced Heart Sounds: Yes: S1, S2 Musculoskeletal: Yes: WNL Extremities: Yes: WNL Edema: No Peripheral Pulses WNL: Yes - Other Data Labs, Other Data: CBC, BMP 06/17/17 06:30 06/17/17 06:30 INR, PTT INR 1.21 (0.82-1.09) H 06/17/17 06:30 none in chart. Problem List - Problems (1) Preop cardiovascular exam Assessment/Plan: There are no cardiac contraindications to surgery. He is at low risk of perioperative events. No cardiac testing is needed. Will see postop as needed. Call with questions. Code(s): Z01.810 - ENCOUNTER FOR PREPROCEDURAL CARDIOVASCULAR EXAMINATION
[2017-06-17] MEDS ORDERED: PT OWN MED DRAWER 7, Y5N ONE (18:23)
[2017-06-17] MEDS: HEPARIN NA (PORCINE) 5,000 UNITS/ML 1ML VIAL SQ SCH (22:20)
--- NOTE | 2017-06-18 09:14 | CONSULT ---
- Consultation REQUESTING PROVIDER: Boaz Moore STEAM TUNNEL FEEDER CONSULT REQUEST: We have been asked to surgically evaluate this patient for a right possible bilateral inguinal hernias. PCP:Donell Fam HISTORY OF PRESENT ILLNESS: 72 y/o male s/p previous TURP presented earlier this week w/urinary retention after flight from [facility]; he was txed and released from the ER after catheritazation h/e returned and was admitted after FC was placed; he has a h/o a known RIH for 3 years; NOC; hx. obtained from niece and medical transcription; he has no c/o today and is awaiting TURP. PMHx: HTN PSHx: cholecystectomy Home Medications Medication Instructions Recorded Cephalexin [Keflex] 500 mg PO BID #20 capsule 06/02/17 Clopidogrel Bisulfate [Plavix -] 75 mg PO DAILY 06/17/17 Enalapril Maleate [Vasotec] 20 mg PO DAILY 06/17/17 Allergies Allergy/AdvReac Type Severity Reaction Status Date / Time No Known Allergies Allergy Verified 06/16/17 04:00 PHYSICAL EXAM: GENERAL: Awake, alert, and fully oriented, in no acute distress. HEAD: Normal with no signs of trauma. EYES: Sclera anicteric, conjunctiva clear. NECK: Normal ROM, supple without lymphadenopathy, JVD, or masses. ABDOMEN: Soft, nontender, not distended, normoactive bowel sounds, no guarding, no rebound, no masses. No organomegaly. Reducible RIH; ? LIH; genitalia are normal; there is an indwelling FC MUSCULOSKELETAL: Normal ROM at all joints. No bony deformities or tenderness. No CVA tenderness. UPPER EXTREMITIES: 2+ pulses, warm, well-perfused. No cyanosis. Cap refill <2 seconds. No peripheral edema. LOWER EXTREMITIES: 2+ pulses, warm, well-perfused. No calf tenderness. No peripheral edema. NEUROLOGICAL: Normal speech, gait not observed. PSYCH: Cooperative. Good eye contact. Appropriate mood and affect. SKIN: Warm, dry, normal turgor, no rashes or lesions noted. Vital Signs Temperature 99.1 F 06/18/17 06:00 Pulse Rate 65 06/18/17 06:00 Respiratory Rate 20 06/18/17 06:00 Blood Pressure 140/84 06/18/17 06:00 O2 Sat by Pulse Oximetry (%) 99 06/16/17 20:00 Lab Results WBC 7.6 K/mm3 (4.0-10.0) 06/17/17 06:30 RBC 4.52 M/mm3 (4.00-5.60) 06/17/17 06:30 Hgb 13.3 GM/dL (11.7-16.9) 06/17/17 06:30 Hct 39.6 % (35.4-49) 06/17/17 06:30 MCV 87.7 fl (80-96) 06/17/17 06:30 MCHC 33.6 g/dl (32.0-35.9) 06/17/17 06:30 RDW 13.2 % (11.9-15.9) 06/17/17 06:30 Plt Count 268 K/MM3 (134-434) 06/17/17 06:30 Sodium 139 mmol/L (136-145) 06/17/17 06:30 Potassium 4.2 mmol/L (3.5-5.1) 06/17/17 06:30 Chloride 104 mmol/L (98-107) 06/17/17 06:30 Carbon Dioxide 30 mmol/L (21-32) 06/17/17 06:30 Anion Gap 5 (8-16) L 06/17/17 06:30 BUN 16 mg/dL (7-18) D 06/17/17 06:30 Creatinine 0.7 mg/dL (0.7-1.3) 06/17/17 06:30 Random Glucose 95 mg/dL (74-106) 06/17/17 06:30 Calcium 8.7 mg/dL (8.5-10.1) 06/17/17 06:30 INR 1.21 (0.82-1.09) H 06/17/17 06:30 Imaging w/u to date reviewed. IMP: RIH; BPH/urinary retention PLAN: As per primary care team and Urology; would not fix this hernia on this admission; patient can have f/u in the outpatient setting and/or on return to [place]. D/W his niece the signs and symptoms of incarceration and/ or strangulation and what to do should that occur; a/a/u by the patient s niece and patient via the medical transcription translatingIsai Barakat MD FACS Visit type - Case Type Case Type: ED Admission - Emergency Emergency Visit: Yes ED Registration Date: 06/16/17 Care time: The patient presented to the Emergency Department on the above date and was hospitalized for further evaluation of their emergent condition. - New patient This patient is new to me today: Yes Date on this admission: 06/18/17 - Critical Care Critical Care patient: No
[2017-06-18] MEDS ORDERED: DEXTROSE 5%-WATER 100 ML IVPB ONE (09:51)
[2017-06-18] MEDS: CEFTRIAXONE 2 GM in DEXTROSE 5%-WATER 100 ML IVPB SCH (10:12)
[2017-06-18] MEDS: ENALAPRIL MALEATE 10 MG TABLET (FP) PO SCH (10:12)
[2017-06-18] MEDS ORDERED: PROPOFOL 20 ML ONE (11:38)
--- NOTE | 2017-06-18 12:41 | OP ---
Operative Note - Note: Operative Date: 06/18/17 Pre-Operative Diagnosis: urinary retention/bph Operation: cystoscopy Findings: 2+ prostate with mild obstruction/2+bladder trabeculation Post-Operative Diagnosis: Same as Pre-op Surgeon: Gabe Vickers Anesthesia: General Operative Report Dictated: Yes
--- NOTE | 2017-06-18 12:42 | CONSULT ---
Consult - text type - Consultation Consultation Note: Patient is urologically cleared for discharge home with antonio catheter when changed to PO antibiotics. Will follow-up as outpatient.
--- NOTE | 2017-06-18 16:00 | PN ---
Progress Note, Physician History of Present Illness: S/P cysto No c/o pain Briggs catheter in place Afebrile WBC improved BC, Urine c/s no growth - Current Medication List Current Medications: Active Medications Enalapril Maleate (Vasotec -) 20 mg PO DAILY [facility] Last Admin: 06/18/17 10:12 Dose: 20 mg Heparin Sodium (Porcine) (Heparin -) 5,000 unit SQ TID [facility] Last Admin: 06/17/17 22:20 Dose: 5,000 unit Ceftriaxone Sodium 2 gm/ (Dextrose) 100 mls @ 200 mls/hr IVPB DAILY [facility] Last Admin: 06/18/17 10:12 Dose: 200 mls/hr - Objective Vital Signs: Vital Signs Temperature 97.4 F L 06/18/17 15:51 Pulse Rate 64 06/18/17 15:51 Respiratory Rate 16 06/18/17 15:51 Blood Pressure 106/60 06/18/17 15:51 O2 Sat by Pulse Oximetry (%) 100 06/18/17 13:45 Constitutional: Yes: No Distress Eyes: Yes: Conjunctiva Clear Cardiovascular: Yes: Regular Rate and Rhythm, S1, S2 Respiratory: Yes: CTA Bilaterally Gastrointestinal: Yes: Normal Bowel Sounds, Soft, Other (+ large reducible R inguinal hernia). No: Tenderness Genitourinary: Yes: Other (+ tenderness R hemiscrotum) Labs: CBC, BMP 06/17/17 06:30 06/17/17 06:30 INR, PTT INR 1.21 (0.82-1.09) H 06/17/17 06:30 Assessment/Plan UTI R epididymitis Acute urinary retention Continue empiric ceftriaxone Urine probe for GC/Chlamydia
--- NOTE | 2017-06-18 17:31 | PN ---
Teaching Attending Note Name of Resident: Sandhya Roblero ATTENDING PHYSICIAN STATEMENT I saw and evaluated the patient. I reviewed the resident's note and discussed the case with the resident. I agree with the resident's findings and plan as documented. SUBJECTIVE: no fever or chills . No abd pain OBJECTIVE: NAD , AAOx3 , very pleasant and cooperative NO JVD, MMM. CV: RRR, no MRG, no JVD Lungs: CTAB Abd:soft, NT, ND , NL BS . R groin with reducible inguinal hernia , with no tenderness. : NL hair distribution, Nl penis , and R parul-scrotum with enlargement due to the hernia .the R epididymis is tender to palpation . skin of scrotum is nL Assessment/Plan: very pleasant 72 y/o man with h/o HTN, and CVA ,and recent diagnosis of UTI and urinary retention , who presented with lower abd pain , and was found to have UTI with epididymitis 1- UTI with epididymitis: improved , s/p cystoscopy and - cont CTX - will check chalmydia and Gonorrhea given the epididymitis 2- Urinary retention : due to UTI and enlarged prostate. there is evidence of R hydro as a result of this. - Cont antonio. - S/p cystoscopy today - cont antonio even after dc. - CT scan shwoed R hydro, korey small stones. 3- R inguinal hernia : Reducible. non tender . - no surgical intervention 4- H/o HTN: cont enalapril 5- H/O CVA : no residual weakness. will resume plavix tomorrow if no bleed will dc once we can switch to po abx
--- NOTE | 2017-06-18 18:59 | PN ---
Physical Exam: SUBJECTIVE: Patient seen and examined. No acute events overnight. Offers no new complaints. Says he feels much better today. Denies fevers, chills, sob and headaches. OBJECTIVE: Vital Signs Period Temp Pulse Resp BP Sys/Cardenas Pulse Ox Last 24 Hr 97.4 F-99.4 F 61-72 10-20 93-140/53-84 97-100 GENERAL: The patient is awake, alert, and fully oriented, in no acute distress. HEAD: Normal with no signs of trauma. EYES: PERRL, extraocular movements intact, sclera anicteric, conjunctiva clear. ENT: oropharynx clear without exudates, moist mucous membranes. NECK: supple. LUNGS: Breath sounds equal, clear to auscultation bilaterally, no wheezes, no crackles, no accessory muscle use. HEART: Regular rate and rhythm, S1, S2 without murmur, rub or gallop. ABDOMEN: Soft, nontender, nondistended, normoactive bowel sounds, no guarding, no rebound EXTREMITIES: 2+ pulses, warm, well-perfused, no edema. NEUROLOGICAL: Cranial nerves II through XII grossly intact. Normal speech, gait not observed. PSYCH: Normal mood, normal affect. SKIN: Warm, dry, normal turgor, no rashes or lesions noted : Right groin with reducible inguinal hernia. Normal penis, right scrotal enlargement due to hernia. Normal hair distribution. Active Medications Generic Name Dose Route Start Last Admin Trade Name Freq PRN Reason Stop Dose Admin Enalapril Maleate 20 mg 06/18/17 10:00 06/18/17 10:12 Vasotec - PO 20 mg DAILY DEISY Administration Heparin Sodium (Porcine) 5,000 unit 06/17/17 22:00 06/17/17 22:20 Heparin - SQ 5,000 unit TID DEISY Administration Ceftriaxone Sodium 2 gm/ 100 mls @ 200 mls/hr 06/16/17 10:00 06/18/17 10:12 Dextrose IVPB 200 mls/hr DAILY DEISY Administration ASSESSMENT/PLAN: 72 year old m from [place] with a PMH of CVA, BPH, recent diagnosis of UTI, presented to the ED with lower abdominal pain and was found to have UTI with Epidymitis. #UTI with epididymitis: -s/p cystoscopy -improved -Continue IV antibiotics: Ceftriaxone -F/U chlamydia and Gonorrhea #Urinary Retention: -due to enlarged prostate -evidence of R hydronephrosis on CT -continue antonio, continue after dc as per urology #Right Inguinal Hernia: -reducible -nontender -surgery not recommended this admission as per Surgery #Hypertension -continue home meds: Enalapril #FEN: Not on any fluids WNL Low Na Diet #Dispo: will likely discharge tomorrow on PO antibiotics Visit type - Emergency Visit Emergency Visit: Yes ED Registration Date: 06/16/17 Care time: The patient presented to the Emergency Department on the above date and was hospitalized for further evaluation of their emergent condition. - New Patient This patient is new to me today: Yes Date on this admission: 06/18/17 - Critical Care Critical Care patient: No
[2017-06-19] MEDS: HEPARIN NA (PORCINE) 5,000 UNITS/ML 1ML VIAL SQ SCH ×3 (05:50→22:16)
[2017-06-19] MEDS ORDERED: DEXTROSE 5%-WATER 100 ML IVPB ONE (09:33)
[2017-06-19] MEDS: CEFTRIAXONE 2 GM in DEXTROSE 5%-WATER 100 ML IVPB SCH (09:36)
[2017-06-19] MEDS: ENALAPRIL MALEATE 10 MG TABLET (FP) PO SCH (09:37)
--- NOTE | 2017-06-19 10:28 | OP ---
DATE OF OPERATION: 06/18/2017 PREOPERATIVE DIAGNOSIS: Benign prostatic hypertrophy, urinary tract infection, urinary retention, and right inguinal hernia. ATTENDING: Gabe Machuca MD ANESTHESIA: General. OPERATION FOLLOWS: The patient was brought into the operating room and placed in a supine position on the operating room table. General anesthesia was administered. Then, the patient was placed in dorsal lithotomy position. He was then prepped and draped in the usual sterile manner. A large right inguinal hernia was noted. Cystoscopy was performed. A 2+ obstructive was noted. The bladder was remarkable for 2+ bladder trabeculation. No evidence of neoplasm or stones are noted. There is evidence of catheter trauma and evidence of a urinary tract infection with erythematous areas. No evidence of a neoplasm was clearly seen. While doing the cystoscopy, the hernia in the right inguinal area was reduced, and it appeared that this hernia was a sliding hernia with the bladder involved. At this point, the cystoscope was removed, and a Briggs catheter was placed to straight drainage. The patient tolerated the procedure very well. No complications were noted. Disposition was to the recovery room. Devorah [id number]
--- NOTE | 2017-06-19 13:47 | PN ---
Teaching Attending Note Name of Resident: Sandhya Roblero ATTENDING PHYSICIAN STATEMENT I saw and evaluated the patient. I reviewed the resident's note and discussed the case with the resident. I agree with the resident's findings and plan as documented. SUBJECTIVE: Had a fever this am . cont to hvae pain in R groin . no N/V OBJECTIVE: NAD , AAOx3 , very pleasant and cooperative NO JVD, MMM. CV: RRR, no MRG, no JVD Lungs: CTAB Abd: soft, NT, ND , NL BS . R groin with reducible inguinal hernia but tender today , no skin cchanges ( erythema, edema or bruising ) , : NL hair distribution, Nl penis , and R parul-scrotum with enlargement due to the hernia .the R epididymis is tender to palpation . skin of scrotum is nL Antonio with yellow urine, small clot in tubing Assessment/Plan: very pleasant 72 y/o man with h/o HTN, and CVA ,and recent diagnosis of UTI and urinary retention , who presented with lower abd pain , and was found to have UTI with epididymitis 1- UTI with epididymitis: had fever today - cont CTX - chalmydia and Gonorrhea were not sent . will re-send 2- Urinary retention : due to UTI and enlarged prostate. there is evidence of R hydro as a result of this. s/p cystoscopy yesterday - Cont antonio, even after DC 3- R inguinal hernia : Reducible. tender , but no skin changes. - seen by Sx , no intervention 4- H/o HTN: cont enalapril 5- H/O CVA: no residual weakness. will resume plavix at DC will dc once we can switch to po abx . Had fever this AM
[2017-06-19] MEDS ORDERED: RANITIDINE HCL 150 MG TABLET (FP) PO ONE (14:45)
--- NOTE | 2017-06-19 18:31 | PN ---
Progress Note, Physician History of Present Illness: Awake, alert Indicates no pain Now with low grade fever WBC WNL Cultures no growth - Current Medication List Current Medications: Active Medications Enalapril Maleate (Vasotec -) 20 mg PO DAILY [facility] Last Admin: 06/19/17 09:37 Dose: 20 mg Heparin Sodium (Porcine) (Heparin -) 5,000 unit SQ TID [facility] Last Admin: 06/19/17 16:08 Dose: 5,000 unit Ceftriaxone Sodium 2 gm/ (Dextrose) 100 mls @ 200 mls/hr IVPB DAILY [facility] Last Admin: 06/19/17 09:36 Dose: 200 mls/hr - Objective Vital Signs: Vital Signs Temperature 99.7 F H 06/19/17 17:15 Pulse Rate 73 06/19/17 17:15 Respiratory Rate 20 06/19/17 17:15 Blood Pressure 120/61 06/19/17 17:15 O2 Sat by Pulse Oximetry (%) 100 06/18/17 13:45 Constitutional: Yes: No Distress Eyes: Yes: Conjunctiva Clear Cardiovascular: Yes: Regular Rate and Rhythm, S1, S2 Respiratory: Yes: CTA Bilaterally Gastrointestinal: Yes: Normal Bowel Sounds, Soft Genitourinary: Yes: Other (+ R inguinal hernia .Less R scrotal tenderness) Labs: CBC, BMP 06/17/17 06:30 06/17/17 06:30 INR, PTT INR 1.21 (0.82-1.09) H 06/17/17 06:30 Assessment/Plan UTI R epididymitis Acute urinary retention Continue empiric ceftriaxone Urine probe for GC/Chlamydia
--- NOTE | 2017-06-19 19:00 | PN ---
Physical Exam: SUBJECTIVE: Patient seen and examined. No acute events over night. Patient complained of a new cough with white sputum production today. He also said he has some suprapubic pain that started this afternoon. OBJECTIVE: Vital Signs Period Temp Pulse Resp BP Sys/Cardenas Pulse Ox Last 24 Hr 97.6 F-100.2 F 62-75 18-20 95-120/52-78 GENERAL: The patient is awake, alert, and fully oriented, in no acute distress. HEAD: Normal with no signs of trauma. EYES: PERRL, extraocular movements intact, sclera anicteric, conjunctiva clear. ENT: oropharynx clear without exudates, moist mucous membranes. NECK: supple. LUNGS: Breath sounds equal, clear to auscultation bilaterally, no wheezes, no crackles, no accessory muscle use. HEART: Regular rate and rhythm, S1, S2 without murmur, rub or gallop. ABDOMEN: Soft, nontender, nondistended, normoactive bowel sounds, no guarding, no rebound EXTREMITIES: 2+ pulses, warm, well-perfused, no edema. NEUROLOGICAL: Cranial nerves II through XII grossly intact. Normal speech, gait not observed. PSYCH: Normal mood, normal affect. SKIN: Warm, dry, normal turgor, no rashes or lesions noted : suprapubic and scrotal tenderness. Right groin with reducible inguinal hernia. Normal penis, right scrotal enlargement due to hernia. Normal hair distribution. Active Medications Generic Name Dose Route Start Last Admin Trade Name Freq PRN Reason Stop Dose Admin Enalapril Maleate 20 mg 06/18/17 10:00 06/19/17 09:37 Vasotec - PO 20 mg DAILY DEISY Administration Heparin Sodium (Porcine) 5,000 unit 06/17/17 22:00 06/19/17 16:08 Heparin - SQ 5,000 unit TID DEISY Administration Ceftriaxone Sodium 2 gm/ 100 mls @ 200 mls/hr 06/16/17 10:00 06/19/17 09:36 Dextrose IVPB 200 mls/hr DAILY DEISY Administration ASSESSMENT/PLAN: 72 year old m from [place] with a PMH of CVA, BPH, recent diagnosis of UTI, presented to the ED with lower abdominal pain and was found to have UTI with Epidymitis. #UTI with epididymitis: -fever today, tender scrotum and suprapubic tenderness -s/p cystoscopy -Continue Day 4 IV antibiotics: Ceftriaxone -F/U chlamydia and Gonorrhea urine probe #Urinary Retention: -due to enlarged prostate -evidence of Right hydronephrosis on CT -continue antnoio, continue after dc as per urology #Cough with sputum production -Chest xray unremarkable with no signs of acute disease #Right Inguinal Hernia: -reducible -nontender -surgery not recommended this admission as per Surgery #Hypertension -continue home meds: Enalapril #FEN: Not on any fluids WNL Low Na Diet #Dispo: Will discharge once able to switch to oral antibiotics. Visit type - Emergency Visit Emergency Visit: Yes ED Registration Date: 06/16/17 Care time: The patient presented to the Emergency Department on the above date and was hospitalized for further evaluation of their emergent condition. - New Patient This patient is new to me today: No - Critical Care Critical Care patient: No
[2017-06-20] MEDS: HEPARIN NA (PORCINE) 5,000 UNITS/ML 1ML VIAL SQ SCH ×3 (06:52→21:13)
--- NOTE | 2017-06-20 08:49 | PN ---
Teaching Attending Note Name of Resident: Sandhya Roblero ATTENDING PHYSICIAN STATEMENT I saw and evaluated the patient. I reviewed the resident's note and discussed the case with the resident. I agree with the resident's findings and plan as documented. SUBJECTIVE: Patient is c/o having scrotal pain better than before. No fever or chills, no shortness of breath. OBJECTIVE: Vital Signs Temperature 99.5 F 06/20/17 06:04 Pulse Rate 64 06/20/17 06:04 Respiratory Rate 20 06/20/17 06:04 Blood Pressure 108/74 06/20/17 06:04 O2 Sat by Pulse Oximetry (%) 97 06/20/17 00:00 CBCD WBC 7.6 K/mm3 (4.0-10.0) 06/17/17 06:30 RBC 4.52 M/mm3 (4.00-5.60) 06/17/17 06:30 Hgb 13.3 GM/dL (11.7-16.9) 06/17/17 06:30 Hct 39.6 % (35.4-49) 06/17/17 06:30 MCV 87.7 fl (80-96) 06/17/17 06:30 MCHC 33.6 g/dl (32.0-35.9) 06/17/17 06:30 RDW 13.2 % (11.9-15.9) 06/17/17 06:30 Plt Count 268 K/MM3 (134-434) 06/17/17 06:30 MPV 8.0 fl (7.5-11.1) 06/17/17 06:30 CMP Sodium 139 mmol/L (136-145) 06/17/17 06:30 Potassium 4.2 mmol/L (3.5-5.1) 06/17/17 06:30 Chloride 104 mmol/L (98-107) 06/17/17 06:30 Carbon Dioxide 30 mmol/L (21-32) 06/17/17 06:30 Anion Gap 5 (8-16) L 06/17/17 06:30 BUN 16 mg/dL (7-18) D 06/17/17 06:30 Creatinine 0.7 mg/dL (0.7-1.3) 06/17/17 06:30 Creat Clearance w eGFR > 60 (>60) 06/17/17 06:30 Random Glucose 95 mg/dL (74-106) 06/17/17 06:30 Calcium 8.7 mg/dL (8.5-10.1) 06/17/17 06:30 Total Bilirubin 0.5 mg/dL (0.2-1.0) D 06/17/17 06:30 AST 21 U/L (15-37) D 06/17/17 06:30 ALT 22 U/L (12-78) 06/17/17 06:30 Alkaline Phosphatase 76 U/L (45-117) 06/17/17 06:30 Total Protein 5.7 g/dl (6.4-8.2) L 06/17/17 06:30 Albumin 2.8 g/dl (3.4-5.0) L 06/17/17 06:30 Current Medications Generic Name Dose Route Start Last Admin Trade Name Freq PRN Reason Stop Dose Admin Enalapril Maleate 20 mg 06/18/17 10:00 06/19/17 09:37 Vasotec - PO 20 mg DAILY DEISY Administration Heparin Sodium (Porcine) 5,000 unit 06/17/17 22:00 06/20/17 06:52 Heparin - SQ 5,000 unit TID DEISY Administration Ceftriaxone Sodium 2 gm/ 100 mls @ 200 mls/hr 06/16/17 10:00 06/19/17 09:36 Dextrose IVPB 200 mls/hr DAILY DEISY Administration Home Medications Medication Instructions Recorded Cephalexin [Keflex] 500 mg PO BID #20 capsule 06/02/17 Clopidogrel Bisulfate [Plavix -] 75 mg PO DAILY 06/17/17 Enalapril Maleate [Vasotec] 20 mg PO DAILY 06/17/17 PE: Positive for inguinal henia on the right size of little smaller than the tennis ball. ASSESSMENT AND PLAN: very pleasant 72 y/o man with h/o HTN, and CVA ,and recent diagnosis of UTI and urinary retention , who presented with lower abd pain , and was found to have UTI with epididymitis # Acute UTI with epididymitis: Fever resolved on IV antibiotic will continue # Acute Urinary retention : due to UTI and enlarged prostate and Inguinal Hernia. there is evidence of R hydro as a result of this. s/p cystoscopy yesterday. patient will need to be discharged home with antonio and follow with # R inguinal hernia : Reducible. tender , but no skin changes. seen by surgery nothing to be done for now. # H/o HTN: cont enalapril # H/O CVA: no residual weakness. will resume plavix at DC
[2017-06-20 08:56] LABS: MCH 29.4 pg (25.7-33.7); PLATELET COUNT 313 K/MM3 (134-434); RDW 13.1 % (11.9-15.9); WHITE BLOOD COUNT 7.2 K/mm3 (4.0-10.0)
[2017-06-20] MEDS ORDERED: DEXTROSE 5%-WATER 100 ML IVPB ONE (09:45)
[2017-06-20] MEDS: ENALAPRIL MALEATE 10 MG TABLET (FP) PO SCH (09:47)
[2017-06-20] MEDS: CEFTRIAXONE 2 GM in DEXTROSE 5%-WATER 100 ML IVPB SCH (09:47)
--- NOTE | 2017-06-20 11:53 | PN ---
Progress Note, Physician History of Present Illness: Awake, alert No c/o pain Afebrile Antonio catheter in place BC(-) - Current Medication List Current Medications: Active Medications Enalapril Maleate (Vasotec -) 20 mg PO DAILY [facility] Last Admin: 06/20/17 09:47 Dose: 20 mg Heparin Sodium (Porcine) (Heparin -) 5,000 unit SQ TID [facility] Last Admin: 06/20/17 06:52 Dose: 5,000 unit Ceftriaxone Sodium 2 gm/ (Dextrose) 100 mls @ 200 mls/hr IVPB DAILY [facility] Last Admin: 06/20/17 09:47 Dose: 200 mls/hr - Objective Vital Signs: Vital Signs Temperature 98.2 F 06/20/17 10:00 Pulse Rate 80 06/20/17 10:00 Respiratory Rate 18 06/20/17 10:00 Blood Pressure 104/65 06/20/17 10:00 O2 Sat by Pulse Oximetry (%) 97 06/20/17 00:00 Constitutional: Yes: No Distress, Thin Cardiovascular: Yes: Regular Rate and Rhythm, S1, S2 Respiratory: Yes: CTA Bilaterally Gastrointestinal: Yes: Normal Bowel Sounds, Soft. No: Tenderness Genitourinary: Yes: Other (+ R inguinal hernia No scrotal tenderness) Labs: CBC, BMP 06/20/17 08:30 06/17/17 06:30 INR, PTT INR 1.21 (0.82-1.09) H 06/17/17 06:30 Assessment/Plan UTI Klebsiella R epididymitis - improved Acute urinary retention S/P antonio catheter Substitute po levaquin 500mg daily x 7d Outpatient Urology follow up
--- NOTE | 2017-06-20 13:42 | PN ---
Physical Exam: SUBJECTIVE: Patient seen and examined. No new complaints today. says he still has scrotal and suprapubic pain. OBJECTIVE: Vital Signs Period Temp Pulse Resp BP Sys/Cardenas Pulse Ox Last 24 Hr 97.6 F-99.7 F 64-82 18-20 104-124/61-83 96-97 GENERAL: The patient is awake, alert, and fully oriented, in no acute distress. HEAD: Normal with no signs of trauma. EYES: PERRL, extraocular movements intact, sclera anicteric, conjunctiva clear. ENT: oropharynx clear without exudates, moist mucous membranes. NECK: supple. LUNGS: Breath sounds equal, clear to auscultation bilaterally, no wheezes, no crackles, no accessory muscle use. HEART: Regular rate and rhythm, S1, S2 without murmur, rub or gallop. ABDOMEN: Soft, nontender, nondistended, normoactive bowel sounds, no guarding, no rebound EXTREMITIES: 2+ pulses, warm, well-perfused, no edema. NEUROLOGICAL: Cranial nerves II through XII grossly intact. Normal speech, gait not observed. PSYCH: Normal mood, normal affect. SKIN: Warm, dry, normal turgor, no rashes or lesions noted : suprapubic and scrotal tenderness. Right groin with reducible inguinal hernia. Normal penis, right scrotal enlargement due to hernia. Normal hair distribution. Laboratory Results - last 24 hr 06/20/17 08:30 WBC 7.2 RBC 4.87 Hgb 14.3 Hct 43.3 MCV 89.0 MCH 29.4 MCHC 33.0 RDW 13.1 Plt Count 313 MPV 8.0 Active Medications Generic Name Dose Route Start Last Admin Trade Name Freq PRN Reason Stop Dose Admin Enalapril Maleate 20 mg 06/18/17 10:00 06/20/17 09:47 Vasotec - PO 20 mg DAILY DEISY Administration Heparin Sodium (Porcine) 5,000 unit 06/17/17 22:00 06/20/17 06:52 Heparin - SQ 5,000 unit TID DEISY Administration Ceftriaxone Sodium 2 gm/ 100 mls @ 200 mls/hr 06/16/17 10:00 06/20/17 09:47 Dextrose IVPB 200 mls/hr DAILY DEISY Administration ASSESSMENT/PLAN: 72 year old m from [place] with a PMH of CVA, BPH, recent diagnosis of UTI, presented to the ED with lower abdominal pain and was found to have UTI with Epidymitis. #UTI with epididymitis: -tender scrotum and suprapubic tenderness -s/p cystoscopy -Continue Day 5 IV antibiotics (ceftriaxone): Will switch to PO Levaquin tomorrow for 7 days. #Urinary Retention: -due to enlarged prostate -evidence of Right hydronephrosis on CT -continue antonio, continue after dc as per urology #Cough with sputum production -Chest xray unremarkable with no signs of acute disease #Right Inguinal Hernia: -reducible -nontender -surgery not recommended this admission as per Surgery #Hypertension -continue home meds: Enalapril #FEN: Not on any fluids WNL Low Na Diet #Dispo: Will discharge once able to switch to oral antibiotics. Visit type - Emergency Visit Emergency Visit: Yes ED Registration Date: 06/16/17 Care time: The patient presented to the Emergency Department on the above date and was hospitalized for further evaluation of their emergent condition. - New Patient This patient is new to me today: No - Critical Care Critical Care patient: No
[2017-06-21] MEDS: HEPARIN NA (PORCINE) 5,000 UNITS/ML 1ML VIAL SQ SCH (05:56)
[2017-06-21] MEDS ORDERED: DEXTROSE 5%-WATER 100 ML IVPB ONE (09:38)
[2017-06-21] MEDS: CEFTRIAXONE 2 GM in DEXTROSE 5%-WATER 100 ML IVPB SCH (10:11)
[2017-06-21] MEDS: ENALAPRIL MALEATE 10 MG TABLET (FP) PO SCH (10:11)
--- NOTE | 2017-06-21 12:00 | DS ---
Physical Exam: SUBJECTIVE: Patient seen and examined. No acute events over night. Patient offers no new complaints. Says he feels much better today with improvement of pain. He denies abdominal pain but still has scrotal pain which he describes as very minor. He denies fevers, chills, dizziness, chest pain, nausea, vomiting, and weakness. OBJECTIVE: Vital Signs Period Temp Pulse Resp BP Sys/Cardenas Pulse Ox Last 24 Hr 97.9 F-99.4 F 60-80 18-20 96-132/63-76 98-98 PHYSICAL EXAM GENERAL: The patient is awake, alert, and fully oriented, in no acute distress. HEAD: Normal with no signs of trauma. EYES: PERRL, extraocular movements intact, sclera anicteric, conjunctiva clear. ENT: oropharynx clear without exudates, moist mucous membranes. NECK: supple. LUNGS: Breath sounds equal, clear to auscultation bilaterally, no wheezes, no crackles, no accessory muscle use. HEART: Regular rate and rhythm, S1, S2 without murmur, rub or gallop. ABDOMEN: Soft, nontender, nondistended, normoactive bowel sounds, no guarding, no rebound EXTREMITIES: 2+ pulses, warm, well-perfused, no edema. NEUROLOGICAL: Cranial nerves II through XII grossly intact. Normal speech, gait not observed. PSYCH: Normal mood, normal affect. SKIN: Warm, dry, normal turgor, no rashes or lesions noted : scrotal tenderness. Right groin with reducible inguinal hernia. Normal penis , right scrotal enlargement due to hernia. Normal hair distribution. LABS HOSPITAL COURSE: Date of Admission:06/16/17 72 year old m from [place] with a PMH of CVA, BPH, recent diagnosis of UTI, presented to the ED with lower abdominal pain and was found to have UTI with Epidymitis, urinary retention and a right inguinal hernia. On admission he had severe scrotal and suprapubic pain with an elevated white cell count. Infectious disease was consulted and placed the patient on 5 days of IV antibiotics: Ceftriaxone. He was also being followed by Urology (Dr. Vickers) for the urinary retention and a antonio was placed. Surgery (Dr. Barakat) was consulted for a large right inguinal hernia and outpatient follow-up was recommended. Once patient was afebrile and white cell improved IV abx was discontinued. Patient was discharged on 7 days of Levaquin and with a antonio in place. He will need to follow up outpatient with Dr. Vickers for further management and removal of the Urinary retention and Antonio. Date of Discharge: 06/21/17 Minutes to complete discharge: 35 Discharge Summary Reason For Visit: CYSTITIS, PROSTATITIS Current Active Problems Cystitis (Acute) Inguinal hernia (Acute) Preop cardiovascular exam (Acute) Prostatitis (Acute) UTI (urinary tract infection) (Acute) Urinary retention (Acute) BPH (benign prostatic hyperplasia) (Chronic) Condition: Improved - Instructions Diet, Activity, Other Instructions: You were being treated and managed for a urinary tract infection and right inguinal hernia. You will be discharged on a 7 day course of antibiotics. Please take 1 tablet a day for 7 days starting tomorrow. You will also be discharged with your antonio catheter. You will need to follow up with your urologist (Dr. Vickers) on July 05, 2017 for further management. You will also need to follow up outpatient with Surgery (Dr. Barakat) for the right inguinal hernia. If you have shortness of breath, chest pain or any concerning symptoms, please go to the Emergency room. Thank you. Dr. Sandhya Roblero Referrals: Gabe Vickers MD [Staff Physician] - 2 Weeks (july 05, 2017. Please see ) Disposition: HOME - Home Medications Comprehensive Discharge Medication List: Ambulatory Orders Clopidogrel Bisulfate [Plavix -] 75 mg PO DAILY 06/17/17 Enalapril Maleate [Vasotec] 20 mg PO DAILY 06/17/17 Levofloxacin [Levaquin] 500 mg PO DAILY #7 tablet 06/21/17 This patient is new to me today: No Emergency Visit: No Critical Care patient: No - Discharge Referral Referred to [facility] No
--- NOTE | 2017-06-21 13:13 | PN ---
Teaching Attending Note Name of Resident: Sandhya Roblero ATTENDING PHYSICIAN STATEMENT I saw and evaluated the patient. I reviewed the resident's note and discussed the case with the resident. I agree with the resident's findings and plan as documented. SUBJECTIVE: Patient feels much better today, no fever or chills, no shortness of breath. OBJECTIVE: Vital Signs Temperature 97.9 F 06/21/17 07:17 Pulse Rate 60 06/21/17 07:17 Respiratory Rate 20 06/21/17 07:17 Blood Pressure 116/70 06/21/17 07:17 O2 Sat by Pulse Oximetry (%) 98 06/21/17 05:44 CBCD WBC 7.2 K/mm3 (4.0-10.0) 06/20/17 08:30 RBC 4.87 M/mm3 (4.00-5.60) 06/20/17 08:30 Hgb 14.3 GM/dL (11.7-16.9) 06/20/17 08:30 Hct 43.3 % (35.4-49) 06/20/17 08:30 MCV 89.0 fl (80-96) 06/20/17 08:30 MCHC 33.0 g/dl (32.0-35.9) 06/20/17 08:30 RDW 13.1 % (11.9-15.9) 06/20/17 08:30 Plt Count 313 K/MM3 (134-434) 06/20/17 08:30 MPV 8.0 fl (7.5-11.1) 06/20/17 08:30 CMP Sodium 139 mmol/L (136-145) 06/17/17 06:30 Potassium 4.2 mmol/L (3.5-5.1) 06/17/17 06:30 Chloride 104 mmol/L (98-107) 06/17/17 06:30 Carbon Dioxide 30 mmol/L (21-32) 06/17/17 06:30 Anion Gap 5 (8-16) L 06/17/17 06:30 BUN 16 mg/dL (7-18) D 06/17/17 06:30 Creatinine 0.7 mg/dL (0.7-1.3) 06/17/17 06:30 Creat Clearance w eGFR > 60 (>60) 06/17/17 06:30 Random Glucose 95 mg/dL (74-106) 06/17/17 06:30 Calcium 8.7 mg/dL (8.5-10.1) 06/17/17 06:30 Total Bilirubin 0.5 mg/dL (0.2-1.0) D 06/17/17 06:30 AST 21 U/L (15-37) D 06/17/17 06:30 ALT 22 U/L (12-78) 06/17/17 06:30 Alkaline Phosphatase 76 U/L (45-117) 06/17/17 06:30 Total Protein 5.7 g/dl (6.4-8.2) L 06/17/17 06:30 Albumin 2.8 g/dl (3.4-5.0) L 06/17/17 06:30 Current Medications Generic Name Dose Route Start Last Admin Trade Name Freq PRN Reason Stop Dose Admin Enalapril Maleate 20 mg 06/18/17 10:00 06/21/17 10:11 Vasotec - PO 20 mg DAILY DEISY Administration Heparin Sodium (Porcine) 5,000 unit 06/17/17 22:00 06/21/17 05:56 Heparin - SQ 5,000 unit TID DEISY Administration Ceftriaxone Sodium 2 gm/ 100 mls @ 200 mls/hr 06/16/17 10:00 06/21/17 10:11 Dextrose IVPB 200 mls/hr DAILY DEISY Administration Home Medications Medication Instructions Recorded Clopidogrel Bisulfate [Plavix -] 75 mg PO DAILY 06/17/17 Enalapril Maleate [Vasotec] 20 mg PO DAILY 06/17/17 Levofloxacin [Levaquin] 500 mg PO DAILY #7 tablet 06/21/17 PE: Positive for inguinal henia on the right size of little smaller than the tennis ball. rest of PE per resident's note ASSESSMENT AND PLAN: very pleasant 72 y/o man with h/o HTN, and CVA ,and recent diagnosis of UTI and urinary retention , who presented with lower abd pain , and was found to have UTI with epididymitis # Acute UTI with epididymitis: will discharge the patient home on oral Levaquin 500mg po x 7 days as per ID # Acute Urinary retention : due to UTI and enlarged prostate and Inguinal Hernia. s/p cystoscopy yesterday. discussed with Dr.Elmassry, patient can be discharged home with antonio and follow with on July 06 2017 , patient has an appointment. # R inguinal hernia : Reducible. tender , but no skin changes. seen by surgery nothing to be done for now, can follow up with his own surgeon [place]. # H/o HTN: cont enalapril # H/O CVA: no residual weakness. continue plavix
[2017-06-21 13:27] VITALS: BP 134/78; PULSE 74; TEMP 97.3
== END 2017-06-21 13:57 | disposition home or self-care (01) | DRG 466 ==
LOC: JER 20:17 → JERBED 06-16 02:52 → UNDOADMOB 06-16 02:58 → JERBED 06-16 02:58 → J8W 06-16 04:47 → OBSVTOIN 06-16 15:43 → J8W 06-17 21:59
PROVIDERS: ADMIT Internal Medicine; ATTEND Internal Medicine
PROC: 0TJB8ZZ Inspection of Bladder, Via Natural or Artificial Opening Endoscopic (ICD-10-PCS; principal; 2017-06-18 10:00)
DX: T83.518A Infection and inflammatory reaction due to other urinary catheter, initial encounter (principal); N39.0 Urinary tract infection, site not specified; N45.1 Epididymitis; Y84.6 Urinary catheterization as the cause of abnormal reaction of the patient, or of later complication, without mention of misadventure at the time of the procedure; Y92.018 Other place in single-family (private) house as the place of occurrence of the external cause; B96.1 Klebsiella pneumoniae [K. pneumoniae] as the cause of diseases classified elsewhere; Z86.73 Personal history of transient ischemic attack (TIA), and cerebral infarction without residual deficits; I10 Essential (primary) hypertension; K40.90 Unilateral inguinal hernia, without obstruction or gangrene, not specified as recurrent; N40.1 Benign prostatic hyperplasia with lower urinary tract symptoms; R33.8 Other retention of urine
CPT/HCPCS: 36415; 71010-TC; 74176-TC; 76775-TC; 76856-TC; 76870-TC; 80048; 80053; 81003; 81015; 83735; 84100; 85025; 85027; 85610; 85730; 86140; 87040; 87086; 94760; 97116-GP; 97161-GP; 99283-25; G0378; J1644